=== PATIENT | female | born 1990 ===

== ENCOUNTER 2019-01-25 17:05 | Inpatient (IN) | payer OTHER ==
[~2019-01-25] VITALS: Ht 167.6 cm; Wt 108.0 kg
[~2019-01-25 17:05] MED LIST: ALLEGRA ALLERG180 MG PO; AMOX1TAB12 PO; GILTUSS TR TAB1 EACH PO
[2019-01-27] MEDS ORDERED: OBSTETRIX EC C1 EACH PO (08:26)
== END 2019-01-31 12:57 | disposition home or self-care (01) | DRG 807 ==
LOC: OB/GYN 17:05 → O/R 01-27 07:34 → OB/GYN 01-27 07:34 → LDR 01-27 09:16 → OB/GYN 01-27 14:09
PROVIDERS: ADMIT Obstetrics & Gynecology
PROC: 4A1HXCZ Monitoring of Products of Conception, Cardiac Rate, External Approach (ICD-10-PCS; 2019-01-27)
PROC: 3E0P7VZ Introduction of Hormone into Female Reproductive, Via Natural or Artificial Opening (ICD-10-PCS; 2019-01-27)
PROC: 10E0XZZ Delivery of Products of Conception, External Approach (ICD-10-PCS; principal; 2019-01-28)
PROC: 3E033VJ Introduction of Other Hormone into Peripheral Vein, Percutaneous Approach (ICD-10-PCS; 2019-01-28)
DX: O80 Encounter for full-term uncomplicated delivery (principal); Z37.0 Single live birth; Z3A.39 39 weeks gestation of pregnancy

== ENCOUNTER 2020-03-13 05:53 | Day surgery (SDC) | payer OTHER ==
[~2020-03-13 05:53] MED LIST changes: +OBSTETRIX EC C1 EACH PO
== END 2020-03-13 10:40 | disposition home or self-care (01) ==
LOC: AMB-ENDOS 05:53
PROVIDERS: ATTEND Surgery
DX: K31.7 Polyp of stomach and duodenum (principal); K31.89 Other diseases of stomach and duodenum; K44.9 Diaphragmatic hernia without obstruction or gangrene; Z20.828 Contact with and (suspected) exposure to other viral communicable diseases